=== PATIENT | male | born 1965 | race Asian ===

== ENCOUNTER 2018-02-09 17:46 | Emergency (ER) | payer SELFPAY ==
[~2018-02-09] VITALS: Ht 165.1 cm; Wt 62.7 kg
[2018-02-09] MEDS ORDERED: MULT-1297 PO (17:50)
[2018-02-09 18:45] LABS: BASOPHILS % (AUTO) 0.3 % (0.0-2.0); EOSINOPHILS % (AUTO) 8.6 % (1.0-6.0); HEMATOCRIT 45.9 % (41-53); HEMOGLOBIN 15.7 g/dL (13.5-17.5); LYMPHOCYTES # (AUTO) 2.5 K/uL (1.0-4.8); LYMPHOCYTES % (AUTO) 35.6 % (22.0-44.0); MEAN CORPUSCULAR HEMOGLOBIN 28.6 pg (26.0-34.0); MEAN CORPUSCULAR HGB CONC 34.2 G/dL (31.0-37.0); MEAN CORPUSCULAR VOLUME 84 fL (80-100); MONOCYTES # (AUTO) 0.6 K/uL (0.1-1.0); NEUTROPHILS # (AUTO) 3.2 K/uL (1.8-7.7); NEUTROPHILS % (AUTO) 46.5 % (40.0-70.0); PLATELET COUNT (AUTO) 181 K/uL (150-450); RED BLOOD CELL COUNT(AUTO) 5.49 MIL/uL (4.50-5.90); RED CELL DISTRIBUTION WIDTH 13.4 % (11.5-14.5)
[2018-02-09 18:56] LABS: ANION GAP 8 mmol/L (8-16); CALCIUM, TOTAL 9.2 mg/dL (8.8-10.5); CARBON DIOXIDE 28 mmol/L (22-29); CHLORIDE 105 mmol/L (98-107); CREATININE 0.72 mg/dL (0.60-1.30); GLOMERULAR FILTR. RATE CALC > 60 mL/min (>60); GLUCOSE,RANDOM 102 mg/dL (70-110); POTASSIUM 3.8 mmol/L (3.5-5.1); SODIUM SERUM 141 mmol/L (136-145); UREA NITROGEN, BLOOD 16 mg/dL (7-18)
[2018-02-09 19:03] LABS: ALANINE AMINOTRANSFERASE 36 U/L (12-78); ALBUMIN 3.9 g/dL (3.4-5.0); ALKALINE PHOSPHATASE 107 U/L (46-116); ASPARTATE AMINOTRANSFERASE 21 U/L (15-37); BILIRUBIN,TOTAL 0.7 mg/dL (0.1-1.0); LIPASE 123 U/L (73-393); TOTAL PROTEIN, SERUM 7.8 g/dL (6.4-8.2)
[2018-02-09 19:05] LABS: B-TYPE NATRIURETIC PEPTIDE 122 pg/mL (0-100)
[2018-02-09 19:10] LABS: APPEARANCE,URINE CLEAR (CLEAR); BILIRUBIN,URINE NEGATIVE (NEGATIVE); GLUCOSE, URINE (UA) NEGATIVE (NEGATIVE); KETONES,URINE NEGATIVE (NEGATIVE); LEUKOCYTE ESTERASE ,URINE NEGATIVE (NEGATIVE); NITRATE,URINE NEGATIVE (NEGATIVE); OCCULT BLOOD,URINE NEGATIVE (NEGATIVE); PH,URINE 5.5 (5.0-8.0); PROTEIN,URINE NEGATIVE (NEGATIVE); UROBILINOGEN,URINE 0.2 mg/dL (<=1.0)
[2018-02-09 19:15] LABS: AMPHET/METH SCREEN,URINE NEGATIVE (NEGATIVE); BARBITURATE SCREEN, URINE NEGATIVE (NEGATIVE); BENZODIAZEPINES SCREEN,URINE NEGATIVE (NEGATIVE); CANNABINOID SCREEN,URINE NEGATIVE (NEGATIVE); COCAINE SCREEN,URINE NEGATIVE (NEGATIVE); METHADONE SCREEN, URINE NEGATIVE (NEGATIVE); OPIATE SCREEN,URINE NEGATIVE (NEGATIVE); PHENCYCLIDINE SCREEN,URINE NEGATIVE (NEGATIVE); RBC,URINE None Seen /HPF (0-2); WBC,URINE None Seen /HPF (0-5)
[2018-02-09 19:16] LABS: BACTERIA,URINE None Seen /HPF (None Seen); SQUAMOUS EPITHELIAL CELL,UR Rare /LPF (None Seen)
[2018-02-09 20:00] VITALS: BP 145/81
[2018-02-09 20:37] LABS: FREE T4 (FREE THYROXINE) 3.33 ng/dL (0.76-1.46)
[2018-02-09 21:05] LABS: THYROID STIMULATING HORMONE < 0.01 uIU/mL (0.36-3.74)
== END 2018-02-09 20:28 | disposition home or self-care (01) ==
LOC: EMS 17:48
DX: I48.91 Unspecified atrial fibrillation (principal); E05.90 Thyrotoxicosis, unspecified without thyrotoxic crisis or storm
CPT/HCPCS: 36415; 71045; 80053; 80307; 81001; 83690; 83880; 84439; 84443; 84484; 85025; 85610; 85730; 93005; 99285; G0480